=== PATIENT | female | born 1945 | race Caucasian/White ===

== ENCOUNTER → 2016-06-01 | Outpatient (CLI) | payer BC ==
[~2016-06-01] MED LIST: AMLO-114 PO; ASPI81TA28 PO; ATOR-22 PO; COEN75CA PO; ESCI1TAB10 PO; INUL1CHW2 PO; LOSA100T2 PO; MULT-506 PO; OMEGCAP2 PO
[2016-06-01 17:29] LABS: BASO % 0.9 %; BASO ABS # 0.05 K/uL (0-0.2); COMPLETE YES; EOS % 2.1 %; HEMATOCRIT 42.7 % (37-47); IG% 0.3 %; LYMPH % 45.7 %; LYMPH ABS # 2.63 K/uL (1.2-3.4); MEAN CELL VOLUME 92.4 fL (80-100); MEAN CORPUSCULAR HEMOGLOBIN 31.2 pg (25-34); MEAN CORPUSCULAR HGB CONC 33.7 g/dl (32-36); MEAN PLATELET VOLUME 9.9 fL (7.4-10.4); MONO % 16.7 %; NEUT % 34.3 %; PLATELET COUNT 270 K/uL (130-400); RED BLOOD COUNT 4.62 M/uL (4.2-5.4); WHITE BLOOD COUNT 5.75 K/uL (4.8-10.8)
[2016-06-01 17:48] LABS: BLOOD UREA NITROGEN 17 mg/dl (7-18); BUN/CREATININE RATIO 16.9 (10-20); CALCIUM 9.3 mg/dl (8.5-10.1); CARBON DIOXIDE 28 mmol/L (21-32); CHLORIDE 105 mmol/L (98-107); GLUCOSE 103 mg/dl (70-99); POTASSIUM 3.7 mmol/L (3.5-5.1); SODIUM 143 mmol/L (136-145)
[2016-06-01 17:58] LABS: ALB/GLOB RATIO 1.2 (0.9-2); ALKALINE PHOSPHATASE 55 U/L (45-117); ALT/SGPT 45 U/L (12-78); AST/SGOT 31 U/L (15-37); CHOLESTEROL 169 mg/dl (0-200); CHOLESTEROL/HDL RATIO 2.8; HDL CHOLESTEROL 61 mg/dl; LDL CHOLESTEROL CALCULATED 85 mg/dl; TRIGLYCERIDES 114 mg/dl (0-150); VERY LOW DENSITY LIPOPROT CALC 23 mg/dl
--- NOTE | 2016-06-05 13:20 | CODING QUERY MEDICAL NECESSITY ---
SUPPORTING DIAGNOSIS NEEDED A supporting diagnosis is required for the test/procedure performed on this patient in order for us to be reimbursed by the patient's insurance. Please provide a supporting diagnosis for the following test/procedure listed below next to the test name along with your signature. *If there is no additional diagnosis for this patient that would support the following test/procedure please document that below next to the test/procedure. Test(s)/Procedure(s) that require a supporting diagnosis: DOS 06/01 * Vitamin D DIAGNOSIS: Provider Signature: Date: Thank you Pascale Guardado Health Information Management Once completed, please kindly fax back to [phone] For questions please call [phone]
== END | disposition home or self-care (01) ==
LOC: C.LABPVFM 11:10
PROVIDERS: ATTEND Internal Medicine Geriatric Medicine
DX: I10 Essential (primary) hypertension (principal); F32.9 Major depressive disorder, single episode, unspecified; E78.5 Hyperlipidemia, unspecified; M85.80 Other specified disorders of bone density and structure, unspecified site

== ENCOUNTER → 2016-08-21 | Outpatient (CLI) | payer BC ==
[2016-08-21 12:10] LABS: BASO % 0.8 %; BASO ABS # 0.06 K/uL (0-0.2); COMPLETE YES; EOS % 3.7 %; IG% 0.3 %; LYMPH % 39.2 %; LYMPH ABS # 2.89 K/uL (1.2-3.4); MEAN CELL VOLUME 92.6 fL (80-100); MEAN CORPUSCULAR HEMOGLOBIN 31.8 pg (25-34); MEAN CORPUSCULAR HGB CONC 34.4 g/dl (32-36); MEAN PLATELET VOLUME 9.4 fL (7.4-10.4); MONO % 11.5 %; NEUT % 44.5 %; PLATELET COUNT 306 K/uL (130-400); RED BLOOD COUNT 4.21 M/uL (4.2-5.4); WHITE BLOOD COUNT 7.37 K/uL (4.8-10.8)
[2016-08-21 13:14] LABS: ESTIMATED AVERAGE GLUCOSE 117 mg/dl; HA1C FLAG Normal (Normal)
== END | disposition home or self-care (01) ==
LOC: C.LABPVFM 10:13
PROVIDERS: ATTEND Physician Assistant Medical
DX: R73.9 Hyperglycemia, unspecified (principal); R53.83 Other fatigue

== ENCOUNTER → 2016-09-13 | Outpatient (CLI) | payer BC | END | disposition home or self-care (01) | LOC: C.MAMM 11:19 | PROVIDERS: ATTEND Physician Assistant Medical | DX: M85.852 Other specified disorders of bone density and structure, left thigh (principal) ==

== ENCOUNTER → 2016-11-29 | Outpatient (CLI) | payer BC ==
[~2016-11-29] MED LIST changes: -AMLO-114 PO
[2016-11-29 12:56] LABS: BLOOD UREA NITROGEN 15 mg/dl (7-18); BUN/CREATININE RATIO 16.7 (10-20); CALCIUM 9.6 mg/dl (8.5-10.1); CARBON DIOXIDE 29 mmol/L (21-32); CHLORIDE 107 mmol/L (98-107); CREATININE 0.91 mg/dl (0.60-1.20); GLUCOSE 95 mg/dl (70-99); POTASSIUM 3.9 mmol/L (3.5-5.1); SODIUM 141 mmol/L (136-145)
== END | disposition home or self-care (01) ==
LOC: C.LABPVFM 09:26
PROVIDERS: ATTEND Internal Medicine Geriatric Medicine
DX: I10 Essential (primary) hypertension (principal)

== ENCOUNTER → 2017-01-02 | Outpatient (CLI) | payer BC ==
[2017-01-02 12:46] LABS: BLOOD UREA NITROGEN 21 mg/dl (7-18); BUN/CREATININE RATIO 18.6 (10-20); CALCIUM 9.9 mg/dl (8.5-10.1); CARBON DIOXIDE 28 mmol/L (21-32); CHLORIDE 105 mmol/L (98-107); GLUCOSE 101 mg/dl (70-99); SODIUM 140 mmol/L (136-145)
== END | disposition home or self-care (01) ==
LOC: C.LABPVFM 09:54
PROVIDERS: ATTEND Internal Medicine Geriatric Medicine
DX: I10 Essential (primary) hypertension (principal)

== ENCOUNTER → 2017-04-30 | Outpatient (CLI) | payer BC ==
--- NOTE | 2017-04-30 15:28 | MAMMOGRAPHY REPORT ---
BILATERAL DIGITAL SCREENING MAMMOGRAM WITH CAD: 04/30/2017 CLINICAL HISTORY: Routine screening. Patient has no complaints. TECHNIQUE: Bilateral CC and MLO views were obtained. Current study was also evaluated with a Compute r Aided Detection (CAD) system. COMPARISON: Comparison is made to exams dated: 04/27/2016 mammogram, 04/26/2015 mammogram, 4 mammogram, 04/22/2013 mammogram, 04/21/2012 mammogram, and 04/18/2011 mammogram - [facility]. BREAST COMPOSITION: There are scattered areas of fibroglandular density in both breasts. FINDINGS: There is a 6 mm focal asymmetry in the upper outer posterior right breast, for which addit ional spot compression tomosynthesis views and possible ultrasound are recommended. A 5 mm nodular a symmetry is seen in the slightly lateral middle one third of the left breast on the CC view, for whic h additional spot compression tomosynthesis views and possible ultrasound are recommended. There is a stable lian-shaped biopsy marker clip in the middle one third of the right breast. A few b enign rim calcifications and mild vascular calcifications. No other suspicious mass, architectural di stortion or cluster of microcalcifications is seen. IMPRESSION: ACR BI-RADS CATEGORY 0: INCOMPLETE EVALUATION: NEED ADDITIONAL IMAGING EVALUATION The 6 mm focal asymmetry in the upper outer quadrant of the right breast, and 5 mm nodular asymmetry in the slightly lateral left breast need additional imaging evaluation. The patient will be called to schedule an appointment. Approximately 10% of breast cancers are not detected with mammography. A negative mammographic report should not delay biopsy if a clinically suggestive mass is present. Mary Guo M.D. ay/:04/30/2017 12:02:43 Roller Cleaner: Nora MITCHELL(R)(M), [facility] letter sent: Addl Imaging 0 BI-RADS Code: ACR BI-RADS Category 0: Incomplete Evaluation: Need Additional Imaging Evaluation
== END | disposition home or self-care (01) ==
LOC: C.MAMM 10:48
PROVIDERS: ATTEND Internal Medicine Geriatric Medicine
DX: Z12.31 Encounter for screening mammogram for malignant neoplasm of breast (principal); N64.89 Other specified disorders of breast

== ENCOUNTER → 2017-05-08 | Outpatient (CLI) | payer BC ==
[~2017-05-08] MED LIST changes: +AMLO5TAB3 PO; +AREDS PO; +CHOL20007 PO; +OXYC-57 PO; +PREMARIN VAGINAL; +PROB1CHW9 PO; +SPIR25TA6 PO
--- NOTE | 2017-05-08 15:00 | MAMMOGRAPHY REPORT ---
BILATERAL DIGITAL DIAGNOSTIC MAMMOGRAM TOMOSYNTHESIS AND TARGETED BILATERAL ULTRASOUND: 05/08/2017 CLINICAL HISTORY: 71-year-old woman called back from screening mammography for a 6 mm focal asymmetry in the upper outer middle to posterior right breast, and 5 mm nodular asymmetry in the slightly late ral left breast. History of prior benign stereotactic biopsy in the right breast. TECHNIQUE: Spot compression 2-D and tomosynthesis views of each breast were obtained. COMPARISON: Comparison is made to exams dated: 04/30/2017 mammogram, 04/27/2016 mammogram, 5 mammogram, 04/23/2014 mammogram, 04/22/2013 mammogram, and 04/21/2012 mammogram - [facility]. BREAST COMPOSITION: There are scattered areas of fibroglandular density in both breasts. FINDINGS: The spot compression views of the right breast demonstrate a persistent oval, partially ci rcumscribed mass in the right upper outer quadrant posteriorly. This mass measures 10 x 5 x 4 mm. F urther characterization with ultrasound was performed. No associated spiculation or cluster calcific ation. No other obvious area of distortion or suspicious mass is identified in the right upper outer quadrant. There is partial effacement of the 5 mm nodular asymmetry in the slightly lateral left breast with ad ditional spot compression 2-D and tomosynthesis images. No definite persistent mass or focal area of architectural distortion. However, further evaluation with ultrasound was performed. Targeted ultrasound was performed in the right lateral breast. In the 9:00 axis, 9 cm from the nippl e, there is a parallel lobulated hypoechoic solid appearing mass measuring 5.2 x 2.8 x 7.7 mm. This likely correlates with the mammographic mass and is indeterminate. Definitive characterization with an ultrasound guided core biopsy is recommended. Additional ultrasound performed in the left breast demonstrates a lobulated hypoechoic solid appearing mass in the 1:00 axis, 5 cm from the nipple, debi uring 4.9 x 3.5 x 7.2 mm. It is unclear if this is incidentally identified or may correspond to the initial nodular asymmetry seen on screening mammography. Nevertheless ultrasound guided core biopsy is recommended. A small isoechoic lesion is identified in the 12:00 left breast, 3 cm from the nippl e, measuring 4.4 x 2.0 x 2.4 mm. This could represent a, located cyst or focal duct ectasia. Pendin eml benign pathology results from the bilateral breast biopsies, could follow closely with repeat imagi ng in 6 months. IMPRESSION: ACR BI-RADS CATEGORY 4: SUSPICIOUS, TARGETED ULTRASOUND ACR BI-RADS CATEGORY 4: SUSPICIO US 1. Ultrasound-guided core biopsy is recommended in the 9:00 right breast for an indeterminate solid appearing 7.7 mm mass that is thought to correlate with the focal asymmetry seen mammographically. 2. Ultrasound-guided core biopsy is recommended in the 1:00 left breast for a solid appearing 7.2 mm mass. It is unclear if this correlates with the initial mammographic asymmetry and correlation with post procedure mammography is recommended. 3. Pending benign pathology results, would recommend a short interval follow-up left diagnostic alisha synthesis mammogram and repeat targeted ultrasound in the 12:00 axes for a benign-appearing subcentim eter complicated cyst versus focal duct ectasia in the 12:00 axis, 3 cm from the nipple. These results and recommendations were discussed with the patient at the time of the exam. She tenta tively scheduled the biopsies prior to leaving our department. Approximately 10% of breast cancers are not detected with mammography. A negative mammographic report should not delay biopsy if a clinically suggestive mass is present. Mary Guo M.D. ay/:05/08/2017 11:31:32 Cooler Servicer: Clover Porter, [facility] letter sent: Abnormal 4/5 BI-RADS Code: ACR BI-RADS Category 4: Suspicious Ultrasound BI-RADS: ACR BI-RADS Category 4: Suspici ous
== END | disposition home or self-care (01) ==
LOC: C.MAMM 09:53
PROVIDERS: ATTEND Internal Medicine Geriatric Medicine
DX: R92.8 Other abnormal and inconclusive findings on diagnostic imaging of breast (principal); N63.10 Unspecified lump in the right breast, unspecified quadrant; N63.20 Unspecified lump in the left breast, unspecified quadrant

== ENCOUNTER → 2017-05-13 | Outpatient (CLI) | payer BC ==
[~2017-05-13] MED LIST changes: -AMLO5TAB3 PO; -AREDS PO; -CHOL20007 PO; -OXYC-57 PO; -PREMARIN VAGINAL; -PROB1CHW9 PO; -SPIR25TA6 PO
== END | disposition home or self-care (01) ==
LOC: C.PAPS 16:19
PROVIDERS: ATTEND Obstetrics & Gynecology
DX: Z12.4 Encounter for screening for malignant neoplasm of cervix (principal)

== ENCOUNTER → 2017-05-16 | Outpatient (CLI) | payer BC ==
--- NOTE | 2017-05-16 10:05 | Discharge Instructions ---
Discharge Instructions Procedure Procedure Date: May 16, 2017. Reason for visit: Bilateral Masses. Discharge Discharge Date: May 16, 2017. Discharge Diagnosis: status post breast biopsies Instructions Activity Recommendations: Additional Limitations (see below) Return to School/Work: no limitations Recommended Home Diet: No Limitations Provider Instructions: ACTIVITY RECOMMENDATIONS: * No lifting, pushing, pulling or exercising the affected side for three days. RETURN TO SCHOOL/WORK: * You may return to work/school after the procedure, but do not perform any strenuous activities for 24 to 48 hours. MEDICATIONS: * Tylenol (two 325 mg) every four to six hours if needed for mild pain (if not allergic to Tylenol). DIET: * Resume previous diet. SPECIAL CARE INSTRUCTIONS: * Keep biopsy site dry for 24 hours. May shower after 24 hours, but do not soak (bathe) incision. * May remove Tegaderm (plastic patch) tomorrow AFTER showering. * Leave the steri-strips on for one week. Allow the steri-strips to fall off by themselves. If not off after one week, you may remove them. You may place a Bandaid crosswise over the strips, if desired. * Apply ice 10 minutes on and 10 minutes off as needed. * Wear a bra at bedtime to sleep more comfortably for 2-3 days. * Your referring physician should have the results after approximately 5 to 7 business days. * Call for unusual bleeding, fever, drainage, etc or if you have any questions call during normal business hours or after hours call Dr Cantor, . FOLLOW UP VISIT: Follow-up with Referring Physician as scheduled. Allergies Coded Allergies: No Known Allergies (Verified , 04/20/16) Rebekah Infante Recommendations: Call your doctor if: * Temperature above 101 degrees * Pain not relieved by pain medicine ordered * There is increased drainage or redness from any incision * You have any unanswered questions or concerns. Your Doctors Instructions noted above were prepared by provider Mica Cantor. Patient Signature Section: Patient Instructions Signature Page Ne Keating Patient (or Guardian) Signature/Date: I have read and understand the instructions given to me by my caregivers. Caregiver/RN/Doctor Signature/Date: The above-named patient and/or guardian has received patient instructions on this date. + Original Patient Signature Page (only) stays with chart. Please make copy for patient.
--- NOTE | 2017-05-16 14:40 | MAMMOGRAPHY REPORT ---
ULTRASOUND GUIDED BIOPSY LEFT BREAST: 05/16/2017 CLINICAL HISTORY: Left 1:00 breast mass. PATIENT CONSENT: The procedure, risks and benefits were discussed with the patient and informed writt en consent was obtained. A timeout was performed immediately prior to the procedure. PROCEDURE DESCRIPTION: With ultrasound guidance, aseptic technique, and lidocaine as the local anesth etic (1% lidocaine to anesthetize the skin and 1% lidocaine with epinephrine to anesthetize the deepe r tissues), the mass of concern in the left 1:00 breast was sampled 3 times with a 14-gauge Achieve b iopsy needle. Immediately thereafter, with ultrasound guidance, aseptic technique, and lidocaine as the local anesthetic, a metallic localizer clip was placed centrally in the mass. Direct pressure wa s applied to the site immediately post procedure and hemostasis was achieved. Postprocedure unilater al mammograms were performed to confirm placement of the clip in the expected location of the breast mass. The patient tolerated the procedure without complication. She was given wound care instruction s. The specimens were sent to pathology for analysis. COMPARISON: Comparison is made to exams dated: 05/16/2017 ultrasound biopsy, 05/08/2017 ultrasound, 05/08 mammogram, 04/30/2017 mammogram, 04/27/2016 mammogram, and 04/26/2015 mammogram - [facility]. IMPRESSION: ULTRASOUND GUIDED BIOPSY Ultrasound guided core needle biopsy of the left 1:00 breast mass, with clip placement. The patient will receive pathology results from her referring provider. Pending benign pathology results, recomme nd follow-up mammograms and repeat ultrasound of the left breast in 6 months to confirm stability of a left 12:00 breast mass seen during the diagnostic workup. Mica Cantor M.D. /:05/16/2017 10:09:07 Porcelain Enamel Sprayer: Clover MITCHELL(Macey)(M), [facility]
--- NOTE | 2017-05-16 14:40 | MAMMOGRAPHY REPORT ---
ULTRASOUND GUIDED BIOPSY RIGHT BREAST: 05/16/2017 CLINICAL HISTORY: Right 9:00 breast mass. PATIENT CONSENT: The procedure, risks and benefits were discussed with the patient and informed writt en consent was obtained. A timeout was performed immediately prior to the procedure. PROCEDURE DESCRIPTION: With ultrasound guidance, aseptic technique, and lidocaine as the local anesth etic (1% lidocaine to anesthetize the skin and 1% lidocaine with epinephrine to anesthetize the deepe r tissues), the mass of concern in the right 9 o'clock breast, 9 cm from the nipple, was sampled 4 ti mes with a 14-gauge Achieve biopsy needle. Immediately thereafter, with ultrasound guidance, asepti c technique, and lidocaine as the local anesthetic, a metallic localizer clip was placed centrally in the mass. Direct pressure was applied to the site immediately post procedure and hemostasis was ach ieved. Postprocedure unilateral mammograms were performed to confirm placement of the clip in the ex pected location of the breast mass. The patient tolerated the procedure without complication. She w as given wound care instructions. The specimens were sent to pathology for analysis. COMPARISON: Comparison is made to exams dated: 05/08/2017 ultrasound, 05/08/2017 mammogram, and 04/30/20 mammogram - [facility]. IMPRESSION: ULTRASOUND GUIDED BIOPSY Ultrasound guided core needle biopsy of the right 9:00 breast mass, with clip placement. The patient will receive pathology results from her referring provider. Pending benign pathology results, recom mend follow-up mammograms and repeat ultrasound of the left breast in 6 months to confirm stability o f a left 12:00 breast mass seen during the diagnostic workup. Mica Cantor M.D. ah/:05/16/2017 10:06:43 Towel Rolling Machine Operator: Clover VIDAL)(M), [facility]
--- NOTE | 2017-05-16 14:40 | MAMMOGRAPHY REPORT ---
BILATERAL DIGITAL DIAGNOSTIC MAMMOGRAM TOMOSYNTHESIS: 05/16/2017 CLINICAL HISTORY: Status post bilateral breast biopsies. TECHNIQUE: Postprocedural bilateral CC and ML tomosynthesis images including C views were obtained. COMPARISON: Comparison is made to exams dated: 05/16/2017 ultrasound biopsy, 05/08/2017 ultrasound, 05/08 mammogram, 04/30/2017 mammogram, 04/27/2016 mammogram, and 04/26/2015 mammogram - [facility]. BREAST COMPOSITION: There are scattered areas of fibroglandular density in both breasts. FINDINGS: A new biopsy marker clip is seen at the site of the biopsied mass in the right 9:00 stretcher and drier ior breast. A new biopsy marker clip is seen at the site of the biopsied mass in the left 1:00 breas t. No significant postbiopsy hematoma is seen. IMPRESSION: POST PROCEDURE IMAGING FOR MARKER PLACEMENT New biopsy marker clips status post bilateral breast biopsies. Pathology results are pending. Pendin g benign pathology results, recommend follow-up mammograms and repeat ultrasound of the left breast i n 6 months to confirm stability of a left 12:00 breast mass seen during the diagnostic workup. Approximately 10% of breast cancers are not detected with mammography. A negative mammographic report should not delay biopsy if a clinically suggestive mass is present. Mica Cantor M.D. /:05/16/2017 10:19:04 Management Lecturer: Clover VIDAL)(M), [facility] BI-RADS Code: Post Procedure Imaging For Marker Placement
== END | disposition home or self-care (01) ==
LOC: C.MAMM 09:26
PROVIDERS: ATTEND Internal Medicine Geriatric Medicine
DX: R92.8 Other abnormal and inconclusive findings on diagnostic imaging of breast (principal); N63.10 Unspecified lump in the right breast, unspecified quadrant; N63.20 Unspecified lump in the left breast, unspecified quadrant

== ENCOUNTER → 2017-05-29 | Outpatient (CLI) | payer BC ==
[2017-05-29 18:07] LABS: ALBUMIN 4.2 gm/dl (3.4-5.0); ALT/SGPT 37 U/L (12-78); BLOOD UREA NITROGEN 18 mg/dl (7-18); CALCIUM 9.9 mg/dl (8.5-10.1); CARBON DIOXIDE 26 mmol/L (21-32); CHOLESTEROL 176 mg/dl (0-200); CREATININE 1.01 mg/dl (0.60-1.20); GLUCOSE 101 mg/dl (70-99); SODIUM 137 mmol/L (136-145)
[2017-05-29 18:18] LABS: ALKALINE PHOSPHATASE 54 U/L (45-117); AST/SGOT 24 U/L (15-37); LDL CHOLESTEROL CALCULATED 101 mg/dl; TOTAL PROTEIN 7.8 gm/dl (6.4-8.2)
== END | disposition home or self-care (01) ==
LOC: C.LABPVFM 14:10
PROVIDERS: ATTEND Internal Medicine Geriatric Medicine
DX: I10 Essential (primary) hypertension (principal); F32.9 Major depressive disorder, single episode, unspecified; E78.5 Hyperlipidemia, unspecified; R73.9 Hyperglycemia, unspecified

== ENCOUNTER 2017-06-10 07:56 | Day surgery (SDC) | payer BC ==
[2017-06-05 14:02] VITALS: BMI 27.0
--- NOTE | 2017-06-05 15:03 | DIAGNOSTIC IMAGING REPORT ---
CHEST 2 VIEWS ROUTINE CLINICAL HISTORY: Preoperative chest COMPARISON STUDY: 04/20/2016 FINDINGS: The cardiac and mediastinal contours are normal. There is no evidence of focal pulmonary consolidation. There is no evidence of failure. No pleural effusions are visualized.[A triangular opacity at the level of the right cardiophrenic angle is felt to be secondary to a fat pad. IMPRESSION: No active disease in the chest. Electronically signed by: Torrey Yun M.D. 06/05/2017 3:01 PM Dictated Date/Time: 06/05/2017 3:01 PM
[2017-06-05 15:06] LABS: BASO % 0.4 %; BASO ABS # 0.03 K/uL (0-0.2); EOS ABS # 0.15 K/uL (0-0.5); HEMATOCRIT 41.1 % (37-47); HEMOGLOBIN 14.2 g/dL (12.0-16.0); IG# 0.01 K/uL (0.00-0.02); LYMPH % 33.7 %; LYMPH ABS # 2.47 K/uL (1.2-3.4); MEAN CELL VOLUME 93.2 fL (80-100); MEAN CORPUSCULAR HEMOGLOBIN 32.2 pg (25-34); MEAN CORPUSCULAR HGB CONC 34.5 g/dl (32-36); MEAN PLATELET VOLUME 9.6 fL (7.4-10.4); MONO ABS # 0.59 K/uL (0.11-0.59); NEUT % 55.8 %; NEUT ABS # 4.09 K/uL (1.4-6.5); PLATELET COUNT 259 K/uL (130-400); RED CELL DISTRIBUTION WIDTH CV 12.5 % (11.5-14.5); RED CELL DISTRIBUTION WIDTH SD 42.6 fL (36.4-46.3); WHITE BLOOD COUNT 7.34 K/uL (4.8-10.8)
[2017-06-05 15:13] LABS: ALBUMIN 4.2 gm/dl (3.4-5.0); CALCIUM 9.7 mg/dl (8.5-10.1); CREATININE 0.88 mg/dl (0.60-1.20); POTASSIUM 3.8 mmol/L (3.5-5.1)
[2017-06-05 15:16] LABS: TOTAL PROTEIN 7.6 gm/dl (6.4-8.2)
--- NOTE | 2017-06-05 15:23 | PAT Medication Instructions ---
Service Date Jun 05, 2017. Current Home Medication List Amlodipine (Norvasc), 5 MG PO QAM Aspirin (Aspirin Ec), 81 MG PO QAM Atorvastatin (Lipitor), 20 MG PO QPM Cholecalciferol (Vitamin D3), 1 TAB PO QAM Coenzyme Q10 (Ubidecarenone) (Co Q-10), 200 MG PO QPM Inulin (Fiber Choice), 2 TAB PO QPM Losartan Potassium & Hydrochlo (Hyzaar), 1 TAB PO QAM Multivitamin (Multivitamin), 1 TAB PO QPM Jericho-3 Fatty Acids (Fish Oil), 1 CAP PO QPM Probiotic Product (Digestive Advantage Probi), 2 TAB PO QPM Spironolactone (Spironolactone), 1 TAB PO QAM [Areds], 2 TAB PO QAM [Premarin Vaginal ], Unknown Dose UD Medication Instructions For Your Scheduled Surgery - Check with surgeon for instructions: Aspirin (Aspirin Ec), 81 MG PO QAM - Hold the following medications starting 06/05/17: [Areds], 2 TAB PO QAM Jericho-3 Fatty Acids (Fish Oil), 1 CAP PO QPM Coenzyme Q10 (Ubidecarenone) (Co Q-10), 200 MG PO QPM - Hold the following medications 24 hours prior to surgery: [Premarin Vaginal ], Unknown Dose UD - Hold the following medications the morning of surgery: Spironolactone (Spironolactone), 1 TAB PO QAM Multivitamin (Multivitamin), 1 TAB PO QPM Losartan Potassium & Hydrochlo (Hyzaar), 1 TAB PO QAM Cholecalciferol (Vitamin D3), 1 TAB PO QAM - Take the following medications the morning of surgery with a sip of water: Amlodipine (Norvasc), 5 MG PO QAM - Take the following medications as scheduled the night before surgery: Probiotic Product (Digestive Advantage Probi), 2 TAB PO QPM Inulin (Fiber Choice), 2 TAB PO QPM Atorvastatin (Lipitor), 20 MG PO QPM If you have any questions please call us at [phone] or [phone] or [phone]
[~2017-06-10] VITALS: Ht 160 cm; Wt 71.0 kg
[~2017-06-10 07:56] MED LIST changes: +AMLO-110 PO; +AREDS PO; +CEFAZOLIN 2000MG IV PUSH 15 ML IV SCH; +CHOL20007 PO; -ESCI1TAB10 PO; +LACTATED RINGER'S 1000ML 1,000 ML IV SCH; +PREMARIN VAGINAL; +PROB1CHW9 PO; +SPR25 PO
[2017-06-10 09:37] VITALS: BP 143/68; PULSE 61; TEMP 36.6; O2SAT 94; Ht 160 cm; Wt 71.0 kg
--- NOTE | 2017-06-10 11:14 | History & Physical Bridge Note ---
H&P Re-Evaluation Bridge Note: I have examined the patient, reviewed the History & Physical and in the interval since the performance of the History & Physical I have noted the following changes of clinical significance: Wire placed, films reviewed. No changes noted
[2017-06-10] MEDS ORDERED: BUPIVACAINE 0.5 % 5 MG/1 ML MPF 30ML VIAL ONE (12:08)
[2017-06-10] MEDS ORDERED: SODIUM CHLORIDE 0.9% PF 50 ML VIAL ONE (12:09)
[2017-06-10] MEDS ORDERED: MIDAZOLAM HCL 1 MG/ML 2ML VIAL ONE (12:10)
[2017-06-10] MEDS ORDERED: FENTANYL CITRATE INJ 50 MCG/1 ML 2 ML VIAL ONE (12:11)
[2017-06-10] MEDS ORDERED: ONDANSETRON INJ 2 MG/ML 2 ML VIAL ONE (12:13)
[2017-06-10] MEDS ORDERED: PROPOFOL IV EMULSION 10 MG/ML 20 ML VIAL IV ONE (12:13)
[2017-06-10] MEDS ORDERED: LIDOCAINE HCL 2% 2 ML VIAL (20MG/ML) ONE (12:37)
[2017-06-10] MEDS ORDERED: DEXAMETHASONE SOD INJ 4 MG/ML VIAL ONE (12:44)
--- NOTE | 2017-06-10 13:14 | [facility] Post Operative Brief Note ---
Immediate Operative Summary Operative Date Jun 10, 2017. Pre-Operative Diagnosis Right Breast Mass Post-Operative Diagnosis Right breast mass Procedure(s) Performed Right Breast Excisional Biopsy with Needle Localization Surgeon Dr. Mcghee Canal Equipment Maintenance Supervisor Surgeon(s) Karuna Carty PA-C Estimated Blood Loss 4 cc Findings Consistent with Post-Op Diagnosis Specimens A: Superior margin, right breast B: Deep margin, right breast C: Right breast tissue Drains None Anesthesia Type General Complication(s) none Disposition Accompanied Pt To Recover: no Disposition: Recovery Room / PACU
--- NOTE | 2017-06-10 13:23 | [facility] Operative Report ---
Operative Report Operative Date Jun 10, 2017. Pre-Operative Diagnosis Right Breast Mass Post-Operative Diagnosis Right breast mass Procedure(s) Performed RIght breast wire localized excisional biopsy Surgeon Dr. Mcghee Movie Extra Surgeon(s) Karuna Carty PA-C Estimated Blood Loss 4 cc Findings mass excised, xray showed wire and clip. additional superior and deep margins sent. 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 Plan for right breast wire localized excisional biopsy. The risks of the procedure were discussed, all questions were answered, and the patient agreed to proceed with surgery as planned. Description of Procedure The patient had a localization wire placed in radiology prior to surgery. The films were reviewed for incisional planning. The patient was properly identified, consented, and taken to the operating room where she was placed in the supine position. General endotracheal anesthesia was induced. SCDs and a safety belt were placed. Preoperative antibiotics were administered. The patient's bilateral chest was prepped and draped in the standard sterile fashion. Surgical timeout was performed and all parties were in agreement that this was the correct patient and procedure to be performed and we continued as planned. A transverse incision was made on the right overlying the wire and deepened down through the subcutaneous tissue with electrocautery. Flaps were raised in all directions. The wire was followed to its terminal end in the breast mass was circumferentially dissected, excised, and passed off the table as specimen. The specimen was oriented. A mammogram was performed of the specimen and confirmed excision of the wire, clip, and previously imaged abnormality. Additional superior and deep margins were taken. The wound was irrigated and hemostasis was confirmed. The skin was closed with interrupted 3-0 Vicryl deep dermal sutures, followed by 4-0 Monocryl running subcuticular suture. Dermabond was placed over the wound. The patient was extubated in the operating room and taken to the PACU where she recovered without apparent incident. All sponge, instrument and needle counts were correct at the conclusion of the procedure. The patient tolerated the procedure well. I attest to the content of the Intraoperative Record and any orders documented therein. Any exceptions are noted below.
[2017-06-10] MEDS ORDERED: SODIUM CHLORIDE 0.9% 1000ML 1,000 ML IV SCH (13:26)
[2017-06-10] MEDS ORDERED: OXYC-57 PO (13:27)
--- NOTE | 2017-06-10 13:29 | Discharge Instructions ---
Discharge Instructions Date of Service Jun 10, 2017. Admission Reason for Admission: Right Breast Mass Discharge Discharge Diagnosis / Problem: Right Breast Mass Discharge Goals Goal(s): Improve function Activity Recommendations Activity Limitations: as noted below Lifting Limitations: no more than 10 pounds Exercise/Sports Limitations: until after follow-up appointment May Resume Sexual Activity: after follow-up appointment Shower/Bathe: tomorrow Driving or Machine Use: resume 1 day after discharge . Instructions / Follow-Up Instructions / Follow-Up Please follow-up with Dr. Mcghee in the General Surgery Clinic in 1-2 weeks. Please call the clinic at [phone] to make an appointment if you do not have one already. Please call the office with any questions or concerns. Current Hospital Diet Patient's current hospital diet: Discharge Diet Recommended Diet: Regular Diet Procedures Procedures Performed: Right Breast Excisional Biopsy with Needle Localization Pending Studies Studies pending at discharge: yes List of pending studies: Pathology report. Laboratory Results Lipid Panel Test 05/29/17 14:15 Range/Units Triglycerides Level 112 0-150 mg/dl Cholesterol Level 176 0-200 mg/dl HDL Cholesterol 53 mg/dl Cholesterol/HDL Ratio 3.3 LDL Cholesterol, Calculated 101 mg/dl Medical Emergencies . Who to Call and When: Medical Emergencies: If at any time you feel your situation is an emergency, please call 911 immediately. . Non-Emergent Contact Non-Emergency issues call your: Primary Care Provider, Surgeon Call Non-Emergent contact if: temperature is above 101.5, your pain is not controlled, wound has increased drainage, wound has increased redness . "Provider Documentation" section prepared by Karuna Carty. . VTE Core Measure Inpt VTE Proph given/why not?: SCD's [place] Drug Monitoring Program Search Results: patient reviewed within database, no issues identified
[2017-06-10] MEDS ORDERED: ONDANSETRON INJ 2 MG/ML 2 ML VIAL IV PRN ×2 (13:30→13:45)
[2017-06-10] MEDS ORDERED: OXYCODONE/ACETAMINOPHEN 5-325 TAB PO PRN ×2 (13:30)
--- NOTE | 2017-06-10 13:44 | Anesthesiology Progress Note ---
Anesthesia Post Op Note Date & Time Jun 10, 2017 at 13:44 Vital Signs Pain Intensity: 0 Vital Signs Past 12 Hours Date Time Temp Pulse Resp B/P (MAP) Pulse Ox O2 Delivery O2 Flow Rate FiO2 06/10/17 09:37 36.6 61 18 143/68 (93) 94 Room Air Notes Mental Status: alert / awake / arousable, participated in evaluation Pt Amnestic to Procedure: Yes Nausea / Vomiting: adequately controlled Pain: adequately controlled Airway Patency, RR, SpO2: stable & adequate BP & HR: stable & adequate Hydration State: stable & adequate Anesthetic Complications: no major complications apparent
[2017-06-10] MEDS ORDERED: EpHEDrine SULFATE INJ 50 MG/ML AMP IV PRN (13:45)
[2017-06-10] MEDS ORDERED: ATROPINE SULFATE 0.1 MG/ML 5ML SYR IV PRN (13:45)
[2017-06-10] MEDS ORDERED: FENTANYL CITRATE INJ 50 MCG/1 ML 2 ML VIAL IV PRN (13:45)
[2017-06-10 14:07] VITALS: BP 170/65; PULSE 77; TEMP 37; O2SAT 94
[2017-06-10 14:37] VITALS: BP 169/86; PULSE 68; TEMP 36.7; O2SAT 95
--- NOTE | 2017-06-10 15:03 | MAMMOGRAPHY REPORT ---
NEEDLE LOCALIZATION RIGHT BREAST: 06/10/2017 CLINICAL HISTORY: 71-year-old woman with a biopsy-proven fibroepithelial proliferation in the 9:00 ri ght breast. She presents for preoperative localization prior to excisional biopsy. COMPARISON: Comparison is made to exams dated: 05/16/2017 ultrasound biopsy, 05/16/2017 mammogram, 05/06 ultrasound biopsy, 05/08/2017 ultrasound, 05/08/2017 mammogram, and 04/30/2017 mammogram - [facility] PATIENT CONSENT: The risks of the procedure were explained to the patient and informed consent was ob tained. The patient denied allergy to lidocaine and she did not eat or drink anything this morning t hat would preclude anesthesia. PROCEDURE DESCRIPTION: Prior mammograms, ultrasounds and ultrasound-guided core biopsy of the right b reast were reviewed prior to needle localization. The ribbon-shaped biopsy marker clip in the 9:00 p osterior right breast is the intended target for localization. With the patient in the seated positi on, the right breast was placed in lateralmedial compression. 1% buffered Lidocaine without epinephr ine was administered as local anesthesia. A 7.5cm Guevara II needle and wire combination was inserted into the breast. Optimal positioning was confirmed and the needle was removed, leaving the wire in p lace, as per surgeon's preference. The entire procedure including approach and needle length were di scussed with the operating surgeon prior to surgery. The patient tolerated the procedure well and th ere was no immediate complication. She was transferred to the operating room in satisfactory conditi on. A surgical specimen radiograph was obtained. The specimen contains the localizing wire and the ribbo n-shaped biopsy marker clip, compatible with successful preoperative localization and subsequent surg ical excision. Final pathology is pending. IMPRESSION: NEEDLE LOCALIZATION Status post successful preoperative wire localization for a biopsy-proven fibroepithelial lesion in t he 9:00 right breast. The imaged specimen includes the intended abnormality. The patient will receive notification of the results from her referring physician. Mary Guo M.D. ay/:06/10/2017 13:41:22 Aquaculture Worker: Jewels VIDAL)(Eriberto), [facility]
--- NOTE | 2017-06-10 15:03 | MAMMOGRAPHY REPORT ---
SPECIMEN: 06/10/2017 CLINICAL HISTORY: Right breast surgical specimen. Please refer to the report from right breast needle localization with imaging performed at the same t [place] for full detail. IMPRESSION: SPECIMEN Please refer to the report from right breast needle localization with imaging performed at the same t [place] for full detail. Mary Guo M.D. ay/:06/10/2017 08:41:41 Low Pressure Kettle Operator: Katie MITCHELL(Macey)(M), [facility]
== END 2017-06-10 15:01 | disposition home or self-care (01) ==
LOC: C.ACU 07:56
PROVIDERS: ATTEND Surgery
DX: N63.10 Unspecified lump in the right breast, unspecified quadrant (principal); E78.5 Hyperlipidemia, unspecified; F32.9 Major depressive disorder, single episode, unspecified; E78.00 Pure hypercholesterolemia, unspecified; I10 Essential (primary) hypertension; Z90.89 Acquired absence of other organs; Z90.710 Acquired absence of both cervix and uterus; Z84.1 Family history of disorders of kidney and ureter; Z83.3 Family history of diabetes mellitus; Z82.49 Family history of ischemic heart disease and other diseases of the circulatory system; Z79.82 Long term (current) use of aspirin